=== PATIENT | female | born 1975 | race Caucasian/White ===

== ENCOUNTER 2016-12-26 14:51 | Emergency (ER) | payer BC ==
[~2016-12-26] VITALS: Ht 160 cm; Wt 50.9 kg
[~2016-12-26 14:51] MED LIST: IRON325 MG PO; MOTRIN400 MG PO; MUCINEX D ER T1 EACH PO; ROBITUSSIN LON118 ML PO
[2016-12-26] MEDS ORDERED: VALIUM5 MG PO (18:10)
[2016-12-26] MEDS ORDERED: NORCO 5/3251 TABLET PO (18:10)
[2016-12-26 18:44] VITALS: BP 119/73
== END 2016-12-26 18:44 | disposition home or self-care (01) ==
LOC: EME 14:51
DX: S16.1XXA Strain of muscle, fascia and tendon at neck level, initial encounter (principal); W17.89XA Other fall from one level to another, initial encounter
CPT/HCPCS: 72050; 99281; 99283